=== PATIENT | female | born 1985 | race Caucasian/White ===

== ENCOUNTER 2017-06-29 12:55 | Outpatient (CLI) | payer BC ==
[2017-07-04 12:14] LABS: ADD MAN DIFF? NO
[2017-07-04 12:20] LABS: BASOPHILS % 0.1 % (0.0-2.0); EOSINOPHILS % 0.1 % (0.0-7.0); HEMATOCRIT 34.5 % (37.0-47.0); HEMOGLOBIN 11.8 g/dl (12.0-16.0); LYMPHOCYTES # 1.5 10^3/ul (0.8-2.9); LYMPHOCYTES % 21.2 % (15.0-51.0); MEAN CORPUSCULAR HEMOGLOBIN 30.2 pg (29.0-33.0); MEAN CORPUSCULAR HGB CONC 34.2 g/dl (32.0-37.0); MEAN CORPUSCULAR VOLUME 88.2 fl (82.0-101.0); MEAN PLATELET VOLUME 10.4 fl (7.4-10.4); MONOCYTE # 0.4 10^3/ul (0.3-0.9); MONOCYTES % 5.5 % (0.0-11.0); NEUTROPHIL # 5.1 10^3/ul (1.6-7.5); NEUTROPHILS % 72.8 % (39.0-77.0); PLATELET COUNT 209 10^3/UL (140-415); RED BLOOD COUNT 3.91 10^6/ul (4.20-5.40); RED CELL DISTRIBUTION WIDTH 12.4 % (11.5-14.5)
== END 2017-07-04 | disposition home or self-care (01) ==
LOC: LAB 12:55
DX: Z33.1 Pregnant state, incidental (principal)
CPT/HCPCS: 85025

== ENCOUNTER 2017-08-01 23:18 | Emergency (ER) | payer BC ==
[2017-08-02 00:50] LABS: ADD MAN DIFF? NO; ADD UMIC YES; UR ASCORBIC ACID 20 mg/dL (NEGATIVE); UR BILIRUBIN (Dip) NEGATIVE (NEGATIVE); UR BLOOD (Dip) 3+ mg/dL (NEGATIVE); UR CLARITY CLEAR (CLEAR); UR COLOR YELLOW (YELLOW); UR GLUCOSE (Dip) NEGATIVE (NEGATIVE); UR KETONES (Dip) NEGATIVE (NEGATIVE); UR LEUKOCYTE ESTERASE (Dip) NEGATIVE Leu/ul (NEGATIVE); UR MUCUS FEW /HPF (NONE SEEN); UR NITRITE (Dip) NEGATIVE (NEGATIVE); UR RBC 19 /HPF (0-5); UR SPECIFIC GRAVITY (Dip) 1.031 (1.003-1.030); UR TOTAL PROTEIN (Dip) NEGATIVE (NEGATIVE); UR UROBILINOGEN (Dip) NEGATIVE (NEGATIVE); UR WBC 1 /HPF (0-5)
[2017-08-02 00:53] LABS: BASOPHILS % 0.1 % (0.0-2.0); HEMATOCRIT 31.6 % (37.0-47.0); HEMOGLOBIN 10.9 g/dl (12.0-16.0); LYMPHOCYTES # 2.1 10^3/ul (0.8-2.9); LYMPHOCYTES % 28.1 % (15.0-51.0); MEAN CORPUSCULAR HEMOGLOBIN 29.9 pg (29.0-33.0); MEAN CORPUSCULAR HGB CONC 34.5 g/dl (32.0-37.0); MEAN CORPUSCULAR VOLUME 86.8 fl (82.0-101.0); MEAN PLATELET VOLUME 10.6 fl (7.4-10.4); MONOCYTE # 0.5 10^3/ul (0.3-0.9); MONOCYTES % 6.6 % (0.0-11.0); NEUTROPHIL # 4.9 10^3/ul (1.6-7.5); NEUTROPHILS % 64.9 % (39.0-77.0); PLATELET COUNT 241 10^3/UL (140-415); RED BLOOD COUNT 3.64 10^6/ul (4.20-5.40); RED CELL DISTRIBUTION WIDTH 12.2 % (11.5-14.5)
[2017-08-02 00:53] LABS: WHITE BLOOD COUNT 7.6 10^3/ul (4.8-10.8)
== END 2017-08-02 02:06 | disposition home or self-care (01) ==
LOC: FTE 23:18
DX: O20.9 Hemorrhage in early pregnancy, unspecified (principal); R10.2 Pelvic and perineal pain; Z3A.15 15 weeks gestation of pregnancy
CPT/HCPCS: 36415; 76805; 81001; 84702; 85025; 86900; 86901; 99284-25

== ENCOUNTER 2017-08-04 01:42 | Emergency (ER) | payer BC ==
[2017-08-04 02:35] LABS: ADD MAN DIFF? NO
[2017-08-04 02:37] LABS: WHITE BLOOD COUNT 8.7 10^3/ul (4.8-10.8)
[2017-08-04 02:37] LABS: BASOPHILS % 0.1 % (0.0-2.0); LYMPHOCYTES # 2.3 10^3/ul (0.8-2.9); LYMPHOCYTES % 26.8 % (15.0-51.0); MEAN CORPUSCULAR HEMOGLOBIN 29.8 pg (29.0-33.0); MEAN CORPUSCULAR HGB CONC 34.4 g/dl (32.0-37.0); MEAN CORPUSCULAR VOLUME 86.7 fl (82.0-101.0); MEAN PLATELET VOLUME 10.7 fl (7.4-10.4); MONOCYTE # 0.5 10^3/ul (0.3-0.9); MONOCYTES % 5.8 % (0.0-11.0); NEUTROPHIL # 5.8 10^3/ul (1.6-7.5); NEUTROPHILS % 67.1 % (39.0-77.0); PLATELET COUNT 247 10^3/UL (140-415); RED BLOOD COUNT 3.69 10^6/ul (4.20-5.40); RED CELL DISTRIBUTION WIDTH 12.4 % (11.5-14.5)
[2017-08-04] MEDS: SOD CHLORIDE 0.9% 1,000 ML IV (03:03)
[2017-08-04] MEDS: ONDANSETRON 4 MG INJ IV (03:03)
[2017-08-04 04:29] LABS: ADD UMIC YES; UR ASCORBIC ACID NEGATIVE (NEGATIVE); UR BILIRUBIN (Dip) NEGATIVE (NEGATIVE); UR BLOOD (Dip) 3+ mg/dL (NEGATIVE); UR CLARITY CLEAR (CLEAR); UR COLOR STRAW (YELLOW); UR GLUCOSE (Dip) NEGATIVE (NEGATIVE); UR KETONES (Dip) NEGATIVE (NEGATIVE); UR LEUKOCYTE ESTERASE (Dip) NEGATIVE Leu/ul (NEGATIVE); UR NITRITE (Dip) NEGATIVE (NEGATIVE); UR RBC 105 /HPF (0-5); UR SPECIFIC GRAVITY (Dip) 1.005 (1.003-1.030); UR TOTAL PROTEIN (Dip) NEGATIVE (NEGATIVE); UR UROBILINOGEN (Dip) NEGATIVE (NEGATIVE); UR WBC 6 /HPF (0-5)
== END 2017-08-04 05:52 | disposition home or self-care (01) ==
LOC: E/R 01:42
DX: O20.9 Hemorrhage in early pregnancy, unspecified (principal); O20.0 Threatened abortion; R10.2 Pelvic and perineal pain; Z3A.16 16 weeks gestation of pregnancy
CPT/HCPCS: 36415; 76805; 81001; 84702; 85025; 87086; 99285-25

== ENCOUNTER → 2017-08-10 | Outpatient (CLI) | payer BC | END | disposition home or self-care (01) | LOC: LAB 13:09 | DX: Z33.1 Pregnant state, incidental (principal) ==

== ENCOUNTER 2017-08-23 17:15 | Inpatient (IN) | payer BC ==
[2017-08-23] MEDS ORDERED: BUTORPHANOL 2 MG INJ IV (19:00)
[2017-08-23] MEDS ORDERED: OXYCODONE/ACETAMINOPHEN (5/325) TAB PO (19:00)
[2017-08-23 19:10] LABS: ADD MAN DIFF? NO
[2017-08-23 19:13] LABS: WHITE BLOOD COUNT 14.1 10^3/ul (4.8-10.8)
[2017-08-23 19:13] LABS: BASOPHILS % 0.1 % (0.0-2.0); HEMATOCRIT 31.2 % (37.0-47.0); HEMOGLOBIN 10.4 g/dl (12.0-16.0); LYMPHOCYTES # 0.9 10^3/ul (0.8-2.9); LYMPHOCYTES % 6.3 % (15.0-51.0); MEAN CORPUSCULAR HEMOGLOBIN 29.8 pg (29.0-33.0); MEAN CORPUSCULAR HGB CONC 33.3 g/dl (32.0-37.0); MEAN CORPUSCULAR VOLUME 89.4 fl (82.0-101.0); MEAN PLATELET VOLUME 10.2 fl (7.4-10.4); MONOCYTE # 0.6 10^3/ul (0.3-0.9); NEUTROPHIL # 12.6 10^3/ul (1.6-7.5); NEUTROPHILS % 89.2 % (39.0-77.0); PLATELET COUNT 192 10^3/UL (140-415); RED BLOOD COUNT 3.49 10^6/ul (4.20-5.40); RED CELL DISTRIBUTION WIDTH 13.5 % (11.5-14.5)
[2017-08-23 19:32] LABS: INR 1.01; PROTIME 13.4 Sec (11.9-14.9)
[2017-08-23 19:33] LABS: ANION GAP 12 (8-16); BLOOD UREA NITROGEN 8 mg/dl (7-20); CALCIUM 8.7 mg/dl (8.4-10.2); CARBON DIOXIDE 24 mmol/L (21-31); CHLORIDE 105 mmol/L (97-110); CREATININE 0.46 mg/dl (0.44-1.00); GLUCOSE 89 mg/dl (70-220); POTASSIUM 3.7 mmol/L (3.5-5.1); SODIUM 137 mmol/L (135-144)
[2017-08-23] MEDS: LACTATED RINGER'S 1,000 ML IV ×2 (19:43→20:57)
[2017-08-23 21:38] LABS: ADD UMIC YES; UR ASCORBIC ACID NEGATIVE (NEGATIVE); UR BILIRUBIN (Dip) NEGATIVE (NEGATIVE); UR BLOOD (Dip) 3+ mg/dL (NEGATIVE); UR CLARITY CLEAR (CLEAR); UR COLOR YELLOW (YELLOW); UR GLUCOSE (Dip) NEGATIVE (NEGATIVE); UR KETONES (Dip) TRACE mg/dL (NEGATIVE); UR LEUKOCYTE ESTERASE (Dip) 2+ Leu/ul (NEGATIVE); UR NITRITE (Dip) NEGATIVE (NEGATIVE); UR RBC 4 /HPF (0-5); UR SPECIFIC GRAVITY (Dip) 1.004 (1.003-1.030); UR SQUAMOUS EPITHELIAL CELL FEW /HPF (FEW); UR TOTAL PROTEIN (Dip) NEGATIVE (NEGATIVE); UR UROBILINOGEN (Dip) NEGATIVE (NEGATIVE); UR WBC 8 /HPF (0-5)
[2017-08-24] MEDS: ACETAMINOPHEN 325 MG TAB PO ×3 (01:03→22:09)
[2017-08-24] MEDS: LACTATED RINGER'S 1,000 ML IV ×3 (01:06→18:05)
[2017-08-24 10:45] LABS: ADD MAN DIFF? NO
[2017-08-24 11:02] LABS: WHITE BLOOD COUNT 10.1 10^3/ul (4.8-10.8)
[2017-08-24 11:02] LABS: BASOPHILS % 0.1 % (0.0-2.0); HEMATOCRIT 29.2 % (37.0-47.0); HEMOGLOBIN 9.8 g/dl (12.0-16.0); LYMPHOCYTES # 2.2 10^3/ul (0.8-2.9); LYMPHOCYTES % 21.9 % (15.0-51.0); MEAN CORPUSCULAR HEMOGLOBIN 30.2 pg (29.0-33.0); MEAN CORPUSCULAR HGB CONC 33.6 g/dl (32.0-37.0); MEAN CORPUSCULAR VOLUME 90.1 fl (82.0-101.0); MEAN PLATELET VOLUME 10.8 fl (7.4-10.4); MONOCYTE # 0.5 10^3/ul (0.3-0.9); MONOCYTES % 4.7 % (0.0-11.0); NEUTROPHIL # 7.4 10^3/ul (1.6-7.5); PLATELET COUNT 170 10^3/UL (140-415); RED BLOOD COUNT 3.24 10^6/ul (4.20-5.40); RED CELL DISTRIBUTION WIDTH 13.4 % (11.5-14.5)
[2017-08-24] MEDS: DOCUSATE SODIUM 100 MG CAP PO (17:18)
[2017-08-24] MEDS: PRENATAL VITAMIN PO (17:18)
[2017-08-24] MEDS: FERROUS SULFATE (EC) 325 MG TAB PO (17:18)
[2017-08-25] MEDS: LACTATED RINGER'S 1,000 ML IV ×3 (04:10→19:34)
[2017-08-25] MEDS: DOCUSATE SODIUM 100 MG CAP PO (09:00)
[2017-08-25] MEDS: PRENATAL VITAMIN PO (09:00)
[2017-08-25 10:59] LABS: ADD MAN DIFF? NO
[2017-08-25 11:00] LABS: WHITE BLOOD COUNT 7.9 10^3/ul (4.8-10.8)
[2017-08-25 11:01] LABS: BASOPHILS % 0.1 % (0.0-2.0); HEMATOCRIT 25.6 % (37.0-47.0); HEMOGLOBIN 8.6 g/dl (12.0-16.0); LYMPHOCYTES # 1.9 10^3/ul (0.8-2.9); LYMPHOCYTES % 23.9 % (15.0-51.0); MEAN CORPUSCULAR HEMOGLOBIN 30.4 pg (29.0-33.0); MEAN CORPUSCULAR HGB CONC 33.6 g/dl (32.0-37.0); MEAN CORPUSCULAR VOLUME 90.5 fl (82.0-101.0); MEAN PLATELET VOLUME 10.3 fl (7.4-10.4); MONOCYTE # 0.4 10^3/ul (0.3-0.9); MONOCYTES % 5.1 % (0.0-11.0); NEUTROPHIL # 5.6 10^3/ul (1.6-7.5); NEUTROPHILS % 70.6 % (39.0-77.0); PLATELET COUNT 146 10^3/UL (140-415); RED BLOOD COUNT 2.83 10^6/ul (4.20-5.40); RED CELL DISTRIBUTION WIDTH 13.6 % (11.5-14.5)
[2017-08-25] MEDS: FERROUS SULFATE (EC) 325 MG TAB PO (11:37)
[2017-08-25] MEDS: ACETAMINOPHEN 325 MG TAB PO (19:34)
[2017-08-26] MEDS: LACTATED RINGER'S 1,000 ML IV ×2 (04:41→12:02)
[2017-08-26] MEDS: DOCUSATE SODIUM 100 MG CAP PO (09:00)
[2017-08-26] MEDS: PRENATAL VITAMIN PO (09:00)
[2017-08-26 09:07] LABS: WHITE BLOOD COUNT 7.3 10^3/ul (4.8-10.8)
[2017-08-26 09:07] LABS: ADD MAN DIFF? NO; BASOPHILS % 0.1 % (0.0-2.0); HEMATOCRIT 24.2 % (37.0-47.0); HEMOGLOBIN 8.1 g/dl (12.0-16.0); LYMPHOCYTES # 1.9 10^3/ul (0.8-2.9); LYMPHOCYTES % 26.2 % (15.0-51.0); MEAN CORPUSCULAR HEMOGLOBIN 30.3 pg (29.0-33.0); MEAN CORPUSCULAR HGB CONC 33.5 g/dl (32.0-37.0); MEAN CORPUSCULAR VOLUME 90.6 fl (82.0-101.0); MEAN PLATELET VOLUME 10.9 fl (7.4-10.4); MONOCYTE # 0.4 10^3/ul (0.3-0.9); MONOCYTES % 5.3 % (0.0-11.0); NEUTROPHILS % 68.1 % (39.0-77.0); PLATELET COUNT 153 10^3/UL (140-415); RED BLOOD COUNT 2.67 10^6/ul (4.20-5.40); RED CELL DISTRIBUTION WIDTH 13.4 % (11.5-14.5)
[2017-08-26] MEDS: FERROUS SULFATE (EC) 325 MG TAB PO (10:53)
[2017-08-27] MEDS: LACTATED RINGER'S 1,000 ML IV ×3 (00:48→20:18)
[2017-08-27 01:04] LABS: ADD MAN DIFF? NO
[2017-08-27 01:08] LABS: BASOPHILS % 0.1 % (0.0-2.0); EOSINOPHILS % 0.1 % (0.0-7.0); HEMATOCRIT 28.8 % (37.0-47.0); HEMOGLOBIN 9.9 g/dl (12.0-16.0); LYMPHOCYTES # 2.4 10^3/ul (0.8-2.9); LYMPHOCYTES % 24.4 % (15.0-51.0); MEAN CORPUSCULAR HEMOGLOBIN 30.6 pg (29.0-33.0); MEAN CORPUSCULAR HGB CONC 34.4 g/dl (32.0-37.0); MEAN CORPUSCULAR VOLUME 88.9 fl (82.0-101.0); MEAN PLATELET VOLUME 10.7 fl (7.4-10.4); MONOCYTE # 0.6 10^3/ul (0.3-0.9); MONOCYTES % 6.2 % (0.0-11.0); NEUTROPHIL # 6.7 10^3/ul (1.6-7.5); NEUTROPHILS % 68.8 % (39.0-77.0); PLATELET COUNT 185 10^3/UL (140-415); RED BLOOD COUNT 3.24 10^6/ul (4.20-5.40); RED CELL DISTRIBUTION WIDTH 13.4 % (11.5-14.5)
[2017-08-27 01:08] LABS: WHITE BLOOD COUNT 9.7 10^3/ul (4.8-10.8)
[2017-08-27] MEDS: NITROFURANTOIN (SR) 100 MG CAP PO ×2 (01:42→11:27)
[2017-08-27] MEDS ORDERED: NITROFURANTOIN (SR) 100 MG CAP PO (09:00)
[2017-08-27] MEDS: FERROUS SULFATE (EC) 325 MG TAB PO (11:00)
[2017-08-27] MEDS: DOCUSATE SODIUM 100 MG CAP PO (11:00)
[2017-08-27] MEDS: PRENATAL VITAMIN PO (11:00)
[2017-08-27 13:12] LABS: ADD MAN DIFF? NO
[2017-08-27 13:13] LABS: WHITE BLOOD COUNT 7.8 10^3/ul (4.8-10.8)
[2017-08-27 13:13] LABS: BASOPHILS % 0.1 % (0.0-2.0); HEMATOCRIT 25.5 % (37.0-47.0); HEMOGLOBIN 8.7 g/dl (12.0-16.0); LYMPHOCYTES # 1.4 10^3/ul (0.8-2.9); LYMPHOCYTES % 17.6 % (15.0-51.0); MEAN CORPUSCULAR HEMOGLOBIN 30.4 pg (29.0-33.0); MEAN CORPUSCULAR HGB CONC 34.1 g/dl (32.0-37.0); MEAN CORPUSCULAR VOLUME 89.2 fl (82.0-101.0); MONOCYTE # 0.4 10^3/ul (0.3-0.9); MONOCYTES % 4.6 % (0.0-11.0); NEUTROPHIL # 6.1 10^3/ul (1.6-7.5); NEUTROPHILS % 77.4 % (39.0-77.0); PLATELET COUNT 160 10^3/UL (140-415); RED BLOOD COUNT 2.86 10^6/ul (4.20-5.40); RED CELL DISTRIBUTION WIDTH 13.3 % (11.5-14.5)
[2017-08-28 07:52] LABS: ADD MAN DIFF? NO
[2017-08-28 08:02] LABS: BASOPHILS % 0.1 % (0.0-2.0); EOSINOPHILS % 0.1 % (0.0-7.0); HEMATOCRIT 25.1 % (37.0-47.0); HEMOGLOBIN 8.5 g/dl (12.0-16.0); LYMPHOCYTES # 1.9 10^3/ul (0.8-2.9); LYMPHOCYTES % 21.6 % (15.0-51.0); MEAN CORPUSCULAR HEMOGLOBIN 30.2 pg (29.0-33.0); MEAN CORPUSCULAR HGB CONC 33.9 g/dl (32.0-37.0); MEAN CORPUSCULAR VOLUME 89.3 fl (82.0-101.0); MEAN PLATELET VOLUME 10.2 fl (7.4-10.4); MONOCYTE # 0.5 10^3/ul (0.3-0.9); MONOCYTES % 5.2 % (0.0-11.0); NEUTROPHIL # 6.5 10^3/ul (1.6-7.5); NEUTROPHILS % 72.6 % (39.0-77.0); PLATELET COUNT 157 10^3/UL (140-415); RED BLOOD COUNT 2.81 10^6/ul (4.20-5.40); RED CELL DISTRIBUTION WIDTH 13.4 % (11.5-14.5)
[2017-08-28 08:02] LABS: WHITE BLOOD COUNT 8.9 10^3/ul (4.8-10.8)
[2017-08-28] MEDS: FERROUS SULFATE (EC) 325 MG TAB PO (13:30)
[2017-08-28] MEDS: DOCUSATE SODIUM 100 MG CAP PO (13:30)
[2017-08-28] MEDS: PRENATAL VITAMIN PO (13:30)
[2017-08-28] MEDS: LACTATED RINGER'S 1,000 ML IV ×3 (13:33→21:17)
[2017-08-28] MEDS: NITROFURANTOIN (SR) 100 MG CAP PO ×3 (15:32→21:14)
[2017-08-29] MEDS: LACTATED RINGER'S 1,000 ML IV (02:45)
[2017-08-29 09:08] LABS: ADD MAN DIFF? NO
[2017-08-29 09:13] LABS: PLATELET COUNT 174 10^3/UL (140-415); WHITE BLOOD COUNT 7.3 10^3/ul (4.8-10.8)
[2017-08-29 09:13] LABS: BASOPHILS % 0.1 % (0.0-2.0); HEMATOCRIT 23.8 % (37.0-47.0); HEMOGLOBIN 8.1 g/dl (12.0-16.0); LYMPHOCYTES # 1.7 10^3/ul (0.8-2.9); LYMPHOCYTES % 23.2 % (15.0-51.0); MEAN CORPUSCULAR HEMOGLOBIN 30.2 pg (29.0-33.0); MEAN CORPUSCULAR VOLUME 88.8 fl (82.0-101.0); MEAN PLATELET VOLUME 10.3 fl (7.4-10.4); MONOCYTE # 0.4 10^3/ul (0.3-0.9); MONOCYTES % 5.3 % (0.0-11.0); NEUTROPHIL # 5.2 10^3/ul (1.6-7.5); PLATELET COUNT 183 10^3/UL (140-415); RED BLOOD COUNT 2.68 10^6/ul (4.20-5.40); RED CELL DISTRIBUTION WIDTH 13.7 % (11.5-14.5)
[2017-08-29 09:48] LABS: INR 0.95; PROTIME 12.8 Sec (11.9-14.9)
[2017-08-29 09:49] LABS: PARTIAL THROMBOPLASTIN TIME 26.9 Sec (25.0-35.0)
[2017-08-29 09:57] LABS: FIBRIN SPLIT PRODUCT <10 ug/ml (<10)
[2017-08-29 10:09] LABS: D-DIMER 4258.87 ng/ml (<460)
[2017-08-29] MEDS: NITROFURANTOIN (SR) 100 MG CAP PO (13:07)
== END 2017-08-29 13:30 | disposition home or self-care (01) | DRG 778 ==
LOC: OBT 17:15 → L-D 08-24 01:15 → OBT 22:00 → PP1 22:00
DX: O20.0 Threatened abortion (principal); D62 Acute posthemorrhagic anemia; O23.42 Unspecified infection of urinary tract in pregnancy, second trimester; O99.012 Anemia complicating pregnancy, second trimester; B95.1 Streptococcus, group B, as the cause of diseases classified elsewhere; Z3A.18 18 weeks gestation of pregnancy; Z64.0 Problems related to unwanted pregnancy
CPT/HCPCS: 36415; 76815; 76816; 76817; 80048; 81001; 85025; 85049; 85362; 85378; 85384; 85610; 85670; 85730; 86850; 86900; 86901; 86920; 87086; 96360; 96361

== ENCOUNTER → 2017-09-25 | Outpatient (CLI) | payer BC ==
[2017-09-25 15:18] LABS: ADD MAN DIFF? NO
[2017-09-25 15:21] LABS: WHITE BLOOD COUNT 6.5 10^3/ul (4.8-10.8)
[2017-09-25 15:21] LABS: BASOPHILS % 0.2 % (0.0-2.0); HEMATOCRIT 35.1 % (37.0-47.0); HEMOGLOBIN 11.4 g/dl (12.0-16.0); LYMPHOCYTES # 2.1 10^3/ul (0.8-2.9); LYMPHOCYTES % 32.6 % (15.0-51.0); MEAN CORPUSCULAR HEMOGLOBIN 29.7 pg (29.0-33.0); MEAN CORPUSCULAR HGB CONC 32.5 g/dl (32.0-37.0); MEAN CORPUSCULAR VOLUME 91.4 fl (82.0-101.0); MEAN PLATELET VOLUME 10.7 fl (7.4-10.4); MONOCYTE # 0.5 10^3/ul (0.3-0.9); MONOCYTES % 7.1 % (0.0-11.0); NEUTROPHIL # 3.9 10^3/ul (1.6-7.5); NEUTROPHILS % 59.9 % (39.0-77.0); PLATELET COUNT 229 10^3/UL (140-415); RED BLOOD COUNT 3.84 10^6/ul (4.20-5.40); RED CELL DISTRIBUTION WIDTH 12.6 % (11.5-14.5)
== END | disposition home or self-care (01) ==
LOC: U/S 14:51
DX: D64.9 Anemia, unspecified (principal); O02.1 Missed abortion
CPT/HCPCS: 76830; 76856; 82652; 85025; 87086

== ENCOUNTER → 2018-02-22 | Outpatient (CLI) | payer BC ==
[2018-02-22 08:36] LABS: ADD MAN DIFF? NO
[2018-02-22 08:45] LABS: EOSINOPHILS # 0.3 10^3/ul (0.0-0.5); EOSINOPHILS % 5.8 % (0.0-7.0); HEMATOCRIT 39.3 % (37.0-47.0); HEMOGLOBIN 12.5 g/dl (12.0-16.0); LYMPHOCYTES # 1.8 10^3/ul (0.8-2.9); LYMPHOCYTES % 36.8 % (15.0-51.0); MEAN CORPUSCULAR HEMOGLOBIN 28.4 pg (29.0-33.0); MEAN CORPUSCULAR HGB CONC 31.8 g/dl (32.0-37.0); MEAN CORPUSCULAR VOLUME 89.3 fl (82.0-101.0); MEAN PLATELET VOLUME 10.7 fl (7.4-10.4); MONOCYTE # 0.3 10^3/ul (0.3-0.9); MONOCYTES % 6.2 % (0.0-11.0); NEUTROPHIL # 2.5 10^3/ul (1.6-7.5); PLATELET COUNT 268 10^3/UL (140-415); RED CELL DISTRIBUTION WIDTH 12.4 % (11.5-14.5)
[2018-02-22 08:45] LABS: WHITE BLOOD COUNT 4.8 10^3/ul (4.8-10.8)
[2018-02-22 09:01] LABS: ALANINE AMINOTRANSFERASE 21 IU/L (13-69); ALBUMIN 4.2 g/dl (3.3-4.9); ALBUMIN/GLOBULIN RATIO 1.16; ALKALINE PHOSPHATASE 42 IU/L (42-121); AMYLASE 111 U/L (11-123); ANION GAP 13 (8-16); ASPARTATE AMINO TRANSFERASE 21 IU/L (15-46); BILIRUBIN,INDIRECT 0.3 mg/dl (0-1.1); BILIRUBIN,TOTAL 0.3 mg/dl (0.2-1.3); BLOOD UREA NITROGEN 16 mg/dl (7-20); CALCIUM 9.4 mg/dl (8.4-10.2); CARBON DIOXIDE 26 mmol/L (21-31); CHLORIDE 107 mmol/L (97-110); CHOL/HDL RATIO 3.4 RATIO; CHOLESTEROL 182 mg/dl (100-200); CREATINE KINASE 27 IU/L (23-200); CREATININE 0.51 mg/dl (0.44-1.00); GLUCOSE 86 mg/dl (70-220); HDL CHOLESTEROL 53 mg/dl (34-82); LDL CHOLESTEROL,CALCULATED 121 mg/dl; LIPASE 57 U/L (23-300); POTASSIUM 4.4 mmol/L (3.5-5.1); SODIUM 142 mmol/L (135-144); TOTAL PROTEIN 7.8 g/dl (6.1-8.1); TRIGLYCERIDES 40 mg/dl (0-149)
[2018-02-22 09:18] LABS: FREE T4 (FREE THYROXINE) 1.15 ng/dl (0.79-2.35)
[2018-02-22 09:35] LABS: ERYTHROCYTE SEDIMENTATION RATE 25 mm/Hr (0-20)
[2018-02-22 10:08] LABS: FOLATE 10.9 ng/ml (2.8-20.0)
[2018-02-22 10:20] LABS: C-REACTIVE PROTEIN HIGH SENSI 0.18 mg/dl (0.00-0.74)
[2018-02-22 15:27] LABS: RHEUMATOID FACTOR NEGATIVE (NEGATIVE)
[2018-02-23 14:11] LABS: ANA SCREEN NEGATIVE (NEGATIVE)
== END | disposition home or self-care (01) ==
LOC: LAB 06:59
DX: R10.9 Unspecified abdominal pain (principal); M79.1 Myalgia; M25.50 Pain in unspecified joint; R20.2 Paresthesia of skin
CPT/HCPCS: 80053; 80061; 82150; 82306; 82550; 82607; 82746; 83690; 84439; 84443; 85025; 85651; 86038; 86140; 86430

== ENCOUNTER → 2018-05-21 | Outpatient (CLI) | payer BC | END | disposition home or self-care (01) | LOC: RAD 07:55 | DX: Z88.0 Allergy status to penicillin (principal); R10.9 Unspecified abdominal pain | CPT/HCPCS: 76700 ==